=== PATIENT | female | born 1965 | race Caucasian/White ===

== ENCOUNTER 2022-08-23 18:18 | Inpatient (IN) | payer MEDICAID, OTHER ==
[~2022-08-23] VITALS: Ht 152.4 cm; Wt 74.8 kg
[~2022-08-23 18:18] MED LIST: INSU100S22 SUBQ; LANTUS SUBQ; NIFE60TE5 PO; SIMV40TA1 PO; SYN.1 PO; [UNRECOGNIZED DRUG - CODE] PO
[2022-08-23 18:30] VITALS: BP 109/51
--- NOTE | 2022-08-23 18:40 | NUR ---
NOTED 100CC OF COFFEE GROUND EMESIS IN EMESIS BAG, PT CONTINUES TO GAG.
[2022-08-23] MEDS ORDERED: ONDANSETRON 4 MG/2 ML VIAL ONE (18:44)
[2022-08-23] MEDS ORDERED: DEXTROSE 50% 50 ML SYR IVP ONE ×2 (18:44→18:45)
[2022-08-23] MEDS ORDERED: MORPHINE SULFATE 4 MG/ML SYR IVP ONE (18:45)
[2022-08-23] MEDS ORDERED: ONDANSETRON 4 MG/2 ML VIAL IVP ONE ×2 (18:45→19:05)
[2022-08-23] MEDS ORDERED: PANTOPRAZOLE 40 MG INJ VIAL IVP ONE (18:45)
[2022-08-23] MEDS ORDERED: NACL 0.9% 1,000 ML IV ONE (19:05)
--- NOTE | 2022-08-23 19:13 | NUR ---
PT IS HERE FOR ABD PAIN. PT RESTING. CT IS HERE AND WILL TAKE THE PATIENT.
--- NOTE | 2022-08-23 20:25 | NUR ---
PT WAS FOUND NON RESPOSIVE, SHE HAD SOME ASPIRATION COFFE GROUND PRIOR. CALLED CALLED BLUE.
--- NOTE | 2022-08-23 20:30 | NUR ---
CALLED TO BEDSIDE. PT HR NOTED 32. DR. HAIR NOTIFIED AND AT BEDSIDE.
--- NOTE | 2022-08-23 20:32 | NUR ---
CODE BLUE INTIATED. SEE CODE BLUE SHEET
[2022-08-23 20:37] LABS: BASOPHILS % (AUTO) 0.5 % (0.0-2.0); HEMOGLOBIN 13.2 g/dL (12.0-16.0); LYMPHOCYTES # (AUTO) 1.1 K/uL (2.5-16.5); LYMPHOCYTES % (AUTO) 13.1 % (20.5-51.1); MEAN CORPUSCULAR HEMOGLOBIN 33 pg (27-31); MEAN CORPUSCULAR HGB CONC 32 g/dL (33-37); MEAN CORPUSCULAR VOLUME 101.1 fL (80-94); MONOCYTES # (AUTO) 0.6 K/uL (0.8-1.0); MONOCYTES % (AUTO) 7.5 % (1.7-9.3); NEUTROPHILS # (AUTO) 6.5 K/uL (1.8-7.7); NEUTROPHILS % (AUTO) 78.9 % (42.2-75.2); PLATELET COUNT (AUTO) 106 K/uL (140-450); RED BLOOD CELL COUNT(AUTO) 4.06 MIL/uL (4.20-5.40); RED CELL DISTRIBUTION WIDTH 16.4 % (11.6-13.7); WHITE BLOOD COUNT (AUTO) 8.3 K/uL (4.8-10.8)
[2022-08-23] MEDS ORDERED: INTUBATION KIT MC ONE (20:37)
--- NOTE | 2022-08-23 20:44 | NUR ---
PT NOTED WITH ROSC
[2022-08-23] MEDS ORDERED: PROPOFOL 1000 MG/100 ML PREMIX 100 ML IV ONE (20:54)
[2022-08-23 21:11] LABS: LIPASE 21 U/L (73-393)
[2022-08-23 21:12] LABS: ALBUMIN 3.7 g/dL (3.4-5.0); ANION GAP 17.9 (8-16); CARBON DIOXIDE 28.3 mmol/L (21-32); POTASSIUM 4.2 mmol/L (3.5-5.1); TOTAL BILIRUBIN 1.3 mg/dL (0.0-1.0)
[2022-08-23] MEDS ORDERED: VANCOMYCIN 1,000 MG in DEXTROSE 5% 250 ML IV ONE (21:15)
[2022-08-23] MEDS: PROPOFOL 1000 MG/100 ML PREMIX 100 ML IV ONE ×2 (21:15→23:42)
[2022-08-23] MEDS ORDERED: PIPERACILLIN/TAZOBACTAM 2.25 GM in DEXTROSE 5% 50 ML IV ONE (21:15)
[2022-08-23 21:22] LABS: CREATININE 5.4 mg/dL (0.6-1.3)
--- NOTE | 2022-08-23 21:30 | NUR ---
PT HEART RATE IS ON 40, VAGUELY PULSE WAS NOTED. CALLED THE CODE BLUE AGAIN.
[2022-08-23] MEDS ORDERED: NOREPINEPHRINE 4 MG in DEXTROSE 5% 250 ML IV ONE (21:35)
--- NOTE | 2022-08-23 21:35 | NUR ---
PT IN PEA. CPR INTIATED. SEE CODE BLUE SHEET.
[2022-08-23] MEDS ORDERED: DOPPLER MC ONE (21:50)
--- NOTE | 2022-08-23 21:50 | NUR ---
PT NOTED WITH ROSC
[2022-08-23] MEDS ORDERED: PANTOPRAZOLE 80 MG in NACL 0.9% 100 ML IVP SCH (22:05)
[2022-08-23] MEDS ORDERED: VANCOMYCIN 1,000 MG VIAL ONE (22:43)
[2022-08-23] MEDS ORDERED: PIPERACILLIN/TAZOBACTAM 2.25 GM VIAL IV ONE (22:43)
[2022-08-23] MEDS ORDERED: PANTOPRAZOLE 40 MG INJ VIAL ONE (22:43)
[2022-08-23 22:49] LABS: HEMATOCRIT 37.6 % (36-48); HEMOGLOBIN 11.7 g/dL (12.0-16.0)
[2022-08-23] MEDS ORDERED: NOREPINEPHRINE 8 MG in DEXTROSE 5% 250 ML IV PRN (22:50)
[2022-08-23] MEDS ORDERED: OCTREOTIDE ACETATE 1.25 MG in NACL 0.9% 250 ML IV SCH (23:00)
--- NOTE | 2022-08-23 23:02 | NUR ---
2030 CALLED TO ER BED 1. PATIENTS HEART RATE DROPPING. COULD NOT FEEL PULSE AND STARTED CPR. STARTED BAGGING PATIENT WITH 100% FIO2. OTHER RT AT BEDSIDE.INTUBATED PT WITH 7.5 TUBE AT LIP 23. WAS ABLE TO UPTAIN ROSC
--- NOTE | 2022-08-23 23:08 | NUR ---
2112 PLACED PATIENT ON CARESCAPE VENT AC 25 VT 500 PEEP5 100% FIO2.
[2022-08-23] MEDS ORDERED: DOCUSATE SODIUM 100 MG GELCAP PO PRN (23:10)
[2022-08-23] MEDS ORDERED: guaiFENesin DM 200/20 MG-10 ML 10 ML UDC PO PRN (23:10)
[2022-08-23] MEDS ORDERED: ONDANSETRON 4 MG/2 ML VIAL IM/IVP PRN (23:10)
[2022-08-23] MEDS ORDERED: HYDROcodone/APAP 7.5/325 MG 1 TAB PO PRN (23:10)
[2022-08-23] MEDS ORDERED: DEXT 5% /NACL 0.9% 1,000 ML IV SCH (23:10)
[2022-08-23] MEDS ORDERED: MORPHINE SULFATE 2 MG/ML SYR IVP PRN (23:10)
[2022-08-23] MEDS ORDERED: ZOLPIDEM 5 MG TAB PO PRN (23:10)
[2022-08-23] MEDS ORDERED: POTASSIUM CHLORIDE 40 MEQ, LIDOCAINE MPF 1% 25 MG in NACL 0.9% 250 ML IV PRN (23:10)
[2022-08-23] MEDS ORDERED: ACETAMINOPHEN 325 MG TAB PO PRN (23:10)
--- NOTE | 2022-08-23 23:11 | NUR ---
2134 PATIENT HEART RATE LOWERED AND CPR STARTED AGAIN.BAGGING PT WITH 100% FIO2. WAS ABLE TO UPTAIN ROSC. CHANGED VENT SETTINGS TO PRESSURE CONTROL 30 RR 20 PEEP 5 FIO2 100% PULLED TUBE BACK TO 21CM PER DR HAIR.ABG DRAWN AND RESULTS GIVEN TO DR HAIR. POST ABG. LOWERED FIO2 TO 75%
[2022-08-23] MEDS ORDERED: MIDAZOLAM MDV 50 MG in NACL 0.9% 40 ML IV PRN (23:20)
[2022-08-23] MEDS ORDERED: VANCOMYCIN PER PHARMACY MC PRN (23:25)
[2022-08-23] MEDS ORDERED: SODIUM BICARBONATE 8.4% 100 MEQ in DEXTROSE 5% 1,000 ML IV SCH (23:25)
--- NOTE | 2022-08-24 00:15 | NUR ---
PT WENT TOP ICU WITH RT. NURSE HELPED ICU NURSES. PT REMAINS IN CRITICAL CONDITIONS
--- NOTE | 2022-08-24 00:20 | NUR ---
ADMITTED THIS 57 YEAR OLD FEMALE PATIENT FROM ER PER ELLYNRDENA S/P CARDIAC ARREST 2X; ORALLY INTUBATED AND VENTILATED AT 50 % FI02; SEDATED WITH CONTINOUS PROPOFOL DRIP AT 10 MCG/KG/MIN VIA CENTRAL LINE ON RIGHT FEMORAL; ALSO ON LEVOPHED DRIP FOR BP MAINTENANCE.AV SHUNT ON RIGHT ARM AND WITH NON FUNCTIONING AV SHUNT TO LEFT ARM. CARDIACSCOPE SHOWS ON SVT HR 183 TO >200/MIN. ABDOMEN IS SOFT BUT DISTENDED. STILES CATH IN PLACE TO GRAVITY DRAINAGE BAG. PATIENT IS ANURIC..
--- NOTE | 2022-08-24 00:26 | NUR ---
0018 TRANSPORTED PT TO ICU BED 1 ON CAREVTAPE VENT.
[2022-08-24 00:44] LABS: POTASSIUM 3.6 mmol/L (3.5-5.1)
[2022-08-24 00:45] LABS: ANION GAP 28.2 (8-16); CARBON DIOXIDE 22.4 mmol/L (21-32)
[2022-08-24 00:46] LABS: CREATININE 5.9 mg/dL (0.6-1.3); MAGNESIUM 2.3 mg/dL (1.8-2.4); PHOSPHORUS 8.2 mg/dL (2.5-4.9)
[2022-08-24 01:00] VITALS: BP 126/100
[2022-08-24 01:30] VITALS: BP 93/66
[2022-08-24] MEDS ORDERED: VANCOMYCIN 1GM/DEXT 5% PREMIX 200 ML IV SCH (01:40)
--- NOTE | 2022-08-24 01:47 | NUR ---
PAGED DR. VARGAS (MACHINIST SUPERVISOR OUTSIDE) TO NOTIFY PTS' HAVING STILL ON SVT;PAGED HER 2X AND GOT NEW ORDER AT 0225H WITH ORDERS; CARRIED OUT.
--- NOTE | 2022-08-24 01:49 | NUR ---
Patient will be admitted to [facility]. Admited to icu. Will go to room 1 Belongings list completed. Report to SHIKHA.
[2022-08-24 02:00] VITALS: BP 126/100
[2022-08-24] MEDS ORDERED: AMIODARONE 450 MG in DEXTROSE 5% 250 ML IV SCH (02:05)
[2022-08-24] MEDS ORDERED: MIDAZOLAM MDV 50 MG in NACL 0.9% 40 ML IV PRN (02:05)
[2022-08-24] MEDS ORDERED: NACL 0.9% 1,000 ML IV SCH ×2 (02:05→03:25)
[2022-08-24] MEDS ORDERED: fentaNYL citrate 1 MG in NACL 0.9% 80 ML IV PRN (02:05)
--- NOTE | 2022-08-24 02:07 | NUR ---
0130 CHANGED VENT MODE TO PRVC 20 VT 450 PEEP 5 50% ITIME 1:2.
[2022-08-24] MEDS ORDERED: PHENYLEPHRINE 10 MG/ML VIAL ONE (02:15)
[2022-08-24] MEDS ORDERED: PHENYLEPHRINE 40 MG in NACL 0.9% 250 ML IV PRN (02:15)
[2022-08-24] MEDS ORDERED: AMIODARONE 450 MG/9 ML VIAL IV ONE (02:16)
--- NOTE | 2022-08-24 02:55 | NUR ---
WENT INTO BRADYCARDIA HR 47-50/MIN; AMIODARONE DRIP STOPPED AND PROPOFOL DRIP STOPPED TOO ORDERED.
[2022-08-24 03:00] VITALS: BP 126/106
[2022-08-24] MEDS ORDERED: NOREPINEPHRINE 4 MG/4 ML VIAL IV ONE (03:01)
--- NOTE | 2022-08-24 03:05 | NUR ---
CALLED LISA TO UPDATE HIM OF PATIENT'S UNSTABLE CONDITION.; LEFT MESSAGE, NO RETURN CALL.
--- NOTE | 2022-08-24 03:16 | NUR ---
PAGED AGAIN DR. VARGAS BECAUSE PATIENT STILL HYPOTENSIVE SBP IN 40'S TO 70'S INSPITE4 ON MAX DOSE OF LEVOPHED AND NEOSYNEPHRINE DRIP; WITH NEW ORDER TO GIVE ANOTHER 1 LITER BOLUS OF NORMAL SALINE AND TO START PATIENT ON VASOPRESSIN, TO DECREASE NEOSYNEPHRINE TO 100 MCG/MIN AND TO RESTART LEVOPHED AT 2 MCG/MIN ONLY.
[2022-08-24] MEDS ORDERED: NOREPINEPHRINE 8 MG in DEXTROSE 5% 250 ML IV PRN (03:25)
[2022-08-24] MEDS ORDERED: VASOPRESSIN 40 UNITS in NACL 0.9% 250 ML IV SCH (03:25)
[2022-08-24] MEDS ORDERED: VASOPRESSIN 20 UNITS/ML VIAL ONE (03:28)
--- NOTE | 2022-08-24 03:43 | NUR ---
CALLED AGAIN LISA THE , DOESN'T BILLING CLINICIAN THE PHONE; LEFT MESSAGE.
--- NOTE | 2022-08-24 03:44 | NUR ---
PATIENT WENT INTO SEVERE FRANCIA AND PULSE APPRECIATED; CPR INSTITUTED, CALL FOR CODE BLUE
[2022-08-24 04:00] VITALS: BP 64/30
--- NOTE | 2022-08-24 04:05 | NUR ---
0344 CODE BLUE CALLED. CPR AND BAGGING WITH 100% FIO2. ROSC WAS UPTAINED. PLACED PT BACK ON VENTILATOR
--- NOTE | 2022-08-24 04:08 | NUR ---
0403 POST XRAY PUSHED ET TUBE 2CM DOWN. LIP LINE 22
--- NOTE | 2022-08-24 04:16 | NUR ---
CODED AGAIN FOR THE 2ND TIME BECAUSE PATIENT WENT INTO SEVERE FRANCIA AND NO PULSE APPRECIATED. DR HIGGINBOTHAM AT BEDSIDE; EMERGENCY MEDS GIVEN BUT TO NO AVAIL; PRONOUNCED AT [address] HIGGINBOTHAM
--- NOTE | 2022-08-24 04:23 | NUR ---
0415 CODE BLUE CALLED.CPR STARTED AND BAGGING WITH 100% FIO2.. ROSC WAS UPTAINED
[2022-08-24 04:31] LABS: BASOPHILS % (AUTO) 0.3 % (0.0-2.0); EOSINOPHILS % (AUTO) 0.1 % (0.0-4.0); HEMATOCRIT 33.7 % (36-48); HEMOGLOBIN 9.9 g/dL (12.0-16.0); LYMPHOCYTES # (AUTO) 1.6 K/uL (2.5-16.5); MEAN CORPUSCULAR HEMOGLOBIN 33 pg (27-31); MEAN CORPUSCULAR HGB CONC 30 g/dL (33-37); MONOCYTES # (AUTO) 0.9 K/uL (0.8-1.0); MONOCYTES % (AUTO) 7.3 % (1.7-9.3); NEUTROPHILS % (AUTO) 79.3 % (42.2-75.2); PLATELET COUNT (AUTO) 44 K/uL (140-450); RED BLOOD CELL COUNT(AUTO) 3.06 MIL/uL (4.20-5.40); RED CELL DISTRIBUTION WIDTH 18.1 % (11.6-13.7); WHITE BLOOD COUNT (AUTO) 12.7 K/uL (4.8-10.8)
--- NOTE | 2022-08-24 04:50 | NUR ---
CALLED AGAIN LIAS, THE BUT HE DOESN'T DRY CLIPPER TENDER THE PHONE AGAIN; LEFT MESSAGE
[2022-08-24] MEDS ORDERED: PIPERACILLIN/TAZOBACTAM 2.25 GM in DEXTROSE 5% 50 ML IV SCH (05:00)
[2022-08-24] MEDS ORDERED: PIPERACILLIN/TAZOBACTAM 3.375 GM in DEXTROSE 5% 50 ML IV SCH (05:00)
[2022-08-24 05:04] LABS: ANION GAP 31.7 (8-16); CARBON DIOXIDE 16.2 mmol/L (21-32); POTASSIUM 3.9 mmol/L (3.5-5.1)
[2022-08-24 05:07] LABS: CREATININE 5.3 mg/dL (0.6-1.3)
--- NOTE | 2022-08-24 08:15 | NUR ---
POST MORTUM CARE COMPLETED ON PT.
--- NOTE | 2022-08-24 08:41 | NUR ---
FAMILY AT BEDSIDE
--- NOTE | 2022-08-24 09:21 | NUR ---
PATIENT HAS BEEN SCREENED AND CATEGORIZED HIGH NUTRITION RISK. PATIENT WILL BE SEEN WITHIN 1-[address] RECEIVED REFERRAL REQUEST FOR VOMITING > 3 DAYS ON 08/24/[address]BA[address]
--- NOTE | 2022-08-24 10:34 | NUR ---
FAMILY CHOSE MORTUARY , SPOKE TO [employer] ATTENDANT FROM MORTUARY WHO STATES ETA IS APPROX 2-3 HOURS FOR REGISTERED RADIATION THERAPIST. CHARGE [employer] MADE AWARE
--- NOTE | 2022-08-24 10:52 | NUR ---
SPOKE TO [employer] G[employer]EN AND SONS NUMBER WELL MORTUARY INFORMATION.
--- NOTE | 2022-08-24 14:41 | NUR ---
MORTUARY AT BEDSIDE FOR [employer]
== END 2022-08-24 14:41 | DRG 133 ==
LOC: MED 18:18 → MIC 23:10
PROVIDERS: ADMIT Student in an Organized Health Care Education/Training Program; ATTEND Student in an Organized Health Care Education/Training Program
PROC: 5A1935Z Respiratory Ventilation, Less than 24 Consecutive Hours (ICD-10-PCS; principal; 2022-08-23)
PROC: 0BH17EZ Insertion of Endotracheal Airway into Trachea, Via Natural or Artificial Opening (ICD-10-PCS; 2022-08-23)
PROC: 06HY33Z Insertion of Infusion Device into Lower Vein, Percutaneous Approach (ICD-10-PCS; 2022-08-23)
PROC: B54BZZA Ultrasonography of Right Lower Extremity Veins, Guidance (ICD-10-PCS; 2022-08-23)
PROC: 5A2204Z Restoration of Cardiac Rhythm, Single (ICD-10-PCS; 2022-08-23)
PROC: 0T9B70Z Drainage of Bladder with Drainage Device, Via Natural or Artificial Opening (ICD-10-PCS; 2022-08-23)
PROC: 0D9670Z Drainage of Stomach with Drainage Device, Via Natural or Artificial Opening (ICD-10-PCS; 2022-08-23)
PROC: 5A12012 Performance of Cardiac Output, Single, Manual (ICD-10-PCS; 2022-08-24)
DX: J96.00 Acute respiratory failure, unspecified whether with hypoxia or hypercapnia (principal); I46.9 Cardiac arrest, cause unspecified; I21.4 Non-ST elevation (NSTEMI) myocardial infarction; I12.0 Hypertensive chronic kidney disease with stage 5 chronic kidney disease or end stage renal disease; E87.20 Acidosis, unspecified; K92.0 Hematemesis; N18.6 End stage renal disease; E11.22 Type 2 diabetes mellitus with diabetic chronic kidney disease; Z20.822 Contact with and (suspected) exposure to COVID-19
CPT/HCPCS: 31500; 36415; 36556; 36600; 71045; 80048; 80053; 82150; 82550; 82553; 82803; 83605; 83690; 83735; 83880; 84100; 84484; 85018; 85025; 85610; 85730; 86886; 86900; 86901; 87040; 87081; 92950; 93005; 94002; 96374; 96375; 99291; C9113; J0282; J2270; J2370; J2405; J2543; J2704; J3370; J3490; J7060; Q0092